=== PATIENT | male | born 2005 | race Caucasian/White ===

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

== ENCOUNTER 2023-07-09 18:17 | Emergency (ER) | payer MEDICAID, SELFPAY ==
[2023-07-09 18:32] VITALS: BP 137/88; PULSE 80; RESP 16; TEMP 37.1; O2SAT 100; BMI 29.5
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
--- NOTE | 2023-07-10 07:59 | PC.SOCIAL ---
Ortho Referral Referral message to ortho at this time. Clinic to contact patient with appt date/time.
== END 2023-07-09 21:18 | disposition home or self-care (01) ==
PROVIDERS: Emergency Provider Physician Assistant; PCP Family Medicine
DX: S32.010A Wedge compression fracture of first lumbar vertebra, initial encounter for closed fracture (principal); V89.2XXA Person injured in unspecified motor-vehicle accident, traffic, initial encounter
CPT/HCPCS: 72072; 72100; 99283

== ENCOUNTER → 2023-07-11 13:50 | Outpatient (BNVA) | payer MEDICAID, SELFPAY | PROVIDERS: PCP Family Medicine; Visit Provider Physician Assistant | DX: S32.010A Wedge compression fracture of first lumbar vertebra, initial encounter for closed fracture; M54.6 Pain in thoracic spine; V49.40XA Driver injured in collision with unspecified motor vehicles in traffic accident, initial encounter | CPT/HCPCS: 99203 ==

== ENCOUNTER 2023-08-29 13:27 | Outpatient (CLI) | payer SELFPAY ==
--- NOTE | 2023-08-29 13:45 | MR_ITS ---
WS: [id number] MRI LUMBAR SPINE NONCONTRAST TECHNIQUE: Sagittal T1, T2 and STIR imaging. Axial T1 and T2 imaging. CLINICAL INFORMATION: Fracture COMPARISON: None. FINDINGS: Mild lumbar curve. No acute compression. No high-grade central canal stenosis. Few Schmorl's nodes in the lower thoracic and upper lumbar spine. Mild chronic anterior wedging at T12 and L1. No acute manny earing compression fractures. No vertebral body edema. T12-L1: Tiny LEFT paracentral protrusion. Spinal canal and foramen are patent. L1-L2: Mild annular bulging. Mild facet arthropathy. Spinal canal and foramen are patent. L2-L3: Mild annular bulging with slight effacement of the ventral thecal sac. Mild facet arthropathy. Spinal canal and foramen are patent. L3-L4: Mild annular bulging. Mild facet arthropathy. Mild LEFT and no RIGHT foraminal narrowing. Spin al canal is patent. L4-L5: Mild annular bulging with slight effacement of the ventral thecal sac. Mild LEFT foraminal amirah rowing. Mild facet arthropathy. L5-S1: No significant disc bulging. Mild facet arthropathy. Spinal canal and foramen are patent. Visualized pelvic bony structures: Normal. Paravertebral soft tissues: Normal. IMPRESSION: 1. Mild lumbar curve. No high-grade central canal stenosis. 2. No acute compression fractures. 3. Mild LEFT L3-4 and LEFT L4-5 foraminal narrowing.
--- NOTE | 2023-08-29 13:55 | XR_ITS ---
WS: [id number] ORBITS TECHNIQUE: 4 views of the orbits CLINICAL INFORMATION: MRI screening COMPARISON: None. FINDINGS: 4 views of the orbits for MRI screening. No evidence of radiopaque foreign body. IMPRESSION: No evidence of radiopaque foreign body
--- NOTE | 2023-08-29 14:30 | MR_ITS ---
WS: [id number] MRI THORACIC SPINE WITHOUT CONTRAST TECHNIQUE: Sagittal T1, T2 and STIR imaging. Axial T2 imaging. Noncontrast imaging obtained. CLINICAL INFORMATION: Fracture COMPARISON: None. FINDINGS: Mild thoracic curve. No acute compression. No high-grade central canal stenosis. Schmorl's nodes in t he mid and lower thoracic spine. No significant disc protrusions or extrusions. Mild annular bulging in the lower thoracic spine. No high-grade spinal canal or foraminal narrowing. Normal caliber thoracic aorta. Adrenal glands are normal. IMPRESSION: No acute thoracic spine findings.
== END 2023-08-29 13:28 | disposition home or self-care (01) ==
LOC: RAD 13:27
PROVIDERS: PCP Family Medicine; Visit Provider Physician Assistant
DX: S32.010A Wedge compression fracture of first lumbar vertebra, initial encounter for closed fracture (principal); T14.8XXA Other injury of unspecified body region, initial encounter; X58.XXXA Exposure to other specified factors, initial encounter; M48.061 Spinal stenosis, lumbar region without neurogenic claudication; Z03.823 Encounter for observation for suspected inserted (injected) foreign body ruled out
CPT/HCPCS: 70200; 72146; 72148

== ENCOUNTER → 2024-06-11 15:10 | Outpatient (BNVA) | payer SELFPAY | PROVIDERS: PCP Family Medicine; Visit Provider Orthopaedic Surgery | DX: M54.9 Dorsalgia, unspecified (principal); M54.6 Pain in thoracic spine | CPT/HCPCS: 72072; 72110 ==